=== PATIENT | male | born 1945 | race Caucasian/White ===

== ENCOUNTER → 2016-11-21 | Outpatient (CLI) | payer MEDICARE, OTHER ==
--- NOTE | 2016-11-22 08:35 | XR ---
Left foot HISTORY: Left foot pain 3 views of the left foot No comparisons There is a plantar spur. Enthesophyte present at the insertion of the Achilles tendon. Degenerative c hanges present at the intertarsal joints, there is marginal spurring. Soft tissue swelling is suspect ed. Degenerative change with mild hallux valgus deformity first metatarsophalangeal joint. Bone naturalization examiner alization is maintained. IMPRESSION: Osteoarthritis. No acute fracture or dislocation is evident. Consider MRI for increased s ensitivity. Soft tissue swelling.
== END | disposition home or self-care (01) ==
LOC: RADXRYALE 13:22
PROVIDERS: ATTEND Internal Medicine
DX: M19.072 Primary osteoarthritis, left ankle and foot (principal)

== ENCOUNTER 2017-02-08 02:48 | Inpatient (IN) | payer MEDICARE, OTHER ==
[2017-02-08] MEDS ORDERED: PIPERACILLIN-TAZOBACTAM 3.375 GM in DEXTROSE/WATER 1 50ML.BAG IVPB STA (03:23)
[2017-02-08] MEDS ORDERED: SODIUM CHLORIDE 0.9% 1,000 ML IV STA ×2 (03:23)
[2017-02-08] MEDS ORDERED: IBUPROFEN 600 MG TAB PO STA (03:23)
--- NOTE | 2017-02-08 03:41 | ED ---
Fever HPI - General Chief Complaint: Fever Stated Complaint: wound,fever Time Seen by Provider: 02/08/17 02:54 Source: patient Mode of arrival: ambulatory Limitations: no limitations - History of Present Illness Initial Comments: 71 years old male presents with a fever of 101.73 has left leg is quite warm and tender and red. He also noticed some mild fever or chills shakes] today that made him come to the ER. He denies any headaches no neck stiffness no chest pain no shortness of breath he is not coughing or bringing up any phlegm denies any abdominal pain no frequency urgency dysuria. Denies any sinus symptoms of TIA or CVA - Related Data Home Medications Medication Instructions Recorded Confirmed Acetaminophen Tab [Tylenol Tab] 500 mg PO Q12HR 12/05/16 01/30/17 Atenolol [Tenormin] 25 mg PO DAILY 12/05/16 01/30/17 Atorvastatin [Lipitor] 10 mg PO HS 12/05/16 01/30/17 Liraglutide [Victoza 2-Kwabena] 0.6 mg SQ DAILY 12/05/16 01/30/17 Valsartan [Diovan] 80 mg PO DAILY 12/05/16 01/30/17 metFORMIN HCL [Glucophage] 500 mg PO BID 12/05/16 01/30/17 Allergies Allergy/AdvReac Type Severity Reaction Status Date / Time No Known Allergies Allergy Verified 02/08/17 03:21 Review of Systems ROS Statement: Those systems with pertinent positive or pertinent negative responses have been documented in the HPI. ROS Other: All systems not noted in ROS Statement are negative. Past Medical History Past Medical History: Coronary Artery Disease (CAD), Diabetes Mellitus, Hypertension Additional Past Medical History / Comment(s): left leg wound History of Any Multi-Drug Resistant Organisms: None Reported Past Surgical History: Appendectomy, Coronary Bypass/CABG, Joint Replacement, Tonsillectomy Additional Past Surgical History / Comment(s): aneurysm repair left leg Past Anesthesia/Blood Transfusion Reactions: No Reported Reaction Past Psychological History: No Psychological Hx Reported Smoking Status: Former smoker Past Alcohol Use History: None Reported - Past Family History Mother Family Medical History: Coronary Artery Disease (CAD) Additional Family Medical History / Comment(s): age 82 CAD Father Family Medical History: Cancer Additional Family Medical History / Comment(s): age 64 lung ca (asbestos) General Exam - General Exam Comments Initial Comments: General: The patient is awake and alert, in no distress, and does not appear acutely ill. Skin: Skin is warm and dry and no rashes or lesions are noted. Eye: Pupils are equal, round and reactive to light, extra-ocular movements are intact; there is normal conjunctiva bilaterally. Ears, nose, mouth and throat: There are moist mucous membranes and no oral lesions. Neck: The neck is supple, there is no tenderness or JVD. Cardiovascular: There is a regular rate and rhythm. No murmur, rub or gallop is appreciated. Respiratory: To auscultation bilateral, no wheezing no rhonchi no distress respiratory joseph noticed Gastrointestinal: Soft, non-distended, non-tender abdomen without masses or organomegaly noted. There is no rebound or guarding present. Bowel sounds are unremarkable. Back: There is no tenderness to palpation in the midline. There is no obvious deformity. Musculoskeletal: Normal ROm, minimal left lower extremity exam is consistent with a cellulitis, there is no focal tenderness or increase of the circumference of the left lower extremity, index of suspicion for DVT is negative at this point Neurological: CN II-XII intact, Cranial nerves III through XII are intact. There are no obvious motor or sensory deficits. Coordination appears grossly intact. Speech is normal. Psychiatric: Cooperative, appropriate mood & affect, normal judgment. Limitations: no limitations Course Vital Signs 02/08/17 02/08/17 03:04 04:11 Temperature 101.7 F H 101 F H Pulse Rate 91 84 Respiratory 20 18 Rate Blood Pressure 134/69 125/59 O2 Sat by Pulse 95 96 Oximetry Medical Decision Making - Lab Data Result diagrams: 02/08/17 03:26 02/08/17 03:26 Lab Results 02/08/17 02/08/17 02/08/17 Range/Units 03:26 03:26 03:26 WBC 6.6 (3.8-10.6) k/uL RBC 2.89 L (4.30-5.90) m/uL Hgb 9.7 L (13.0-17.5) gm/dL Hct 28.8 L (39.0-53.0) % MCV 99.5 (80.0-100.0) fL MCH 33.6 (25.0-35.0) pg MCHC 33.7 (31.0-37.0) g/dL RDW 20.8 H (11.5-15.5) % Plt Count 51 L (150-450) k/uL Neutrophils % 85 % Lymphocytes % 6 % Monocytes % 5 % Eosinophils % 3 % Basophils % 0 % Neutrophils # 5.6 (1.3-7.7) k/uL Lymphocytes # 0.4 L (1.0-4.8) k/uL Monocytes # 0.3 (0-1.0) k/uL Eosinophils # 0.2 (0-0.7) k/uL Basophils # 0.0 (0-0.2) k/uL Manual Slide Review Performed Hypochromasia Slight Poikilocytosis Moderate Anisocytosis Moderate Macrocytosis Moderate Tear Drop Cells Present Ovalocytes Present Sodium 139 (137-145) mmol/L Potassium 4.7 (3.5-5.1) mmol/L Chloride 108 H (98-107) mmol/L Carbon Dioxide 19 L (22-30) mmol/L Anion Gap 12 mmol/L BUN 20 (9-20) mg/dL Creatinine 1.00 (0.66-1.25) mg/dL Est GFR (MDRD) Af Amer >60 (>60 ml/min/1.73 sqM) Est GFR (MDRD) Non-Af >60 (>60 ml/min/1.73 sqM) Glucose 189 H (74-99) mg/dL Plasma Lactic Acid Hemant 2.4 H* (0.7-2.0) mmol/L Calcium 8.9 (8.4-10.2) mg/dL Total Bilirubin 1.5 H (0.2-1.3) mg/dL AST 46 (17-59) U/L ALT 41 (21-72) U/L Alkaline Phosphatase 133 H (38-126) U/L Total Protein 6.9 (6.3-8.2) g/dL Albumin 3.8 (3.5-5.0) g/dL Urine Color Urine Appearance (Clear) Urine pH (5.0-8.0) Ur Specific [place] (1.001-1.035) Urine Protein (Negative) Urine Glucose (UA) (Negative) Urine Ketones (Negative) Urine Blood (Negative) Urine Nitrite (Negative) Urine Bilirubin (Negative) Urine Urobilinogen (<2.0) mg/dL Ur Leukocyte Esterase (Negative) 02/08/17 Range/Units 03:26 WBC (3.8-10.6) k/uL RBC (4.30-5.90) m/uL Hgb (13.0-17.5) gm/dL Hct (39.0-53.0) % MCV (80.0-100.0) fL MCH (25.0-35.0) pg MCHC (31.0-37.0) g/dL RDW (11.5-15.5) % Plt Count (150-450) k/uL Neutrophils % % Lymphocytes % % Monocytes % % Eosinophils % % Basophils % % Neutrophils # (1.3-7.7) k/uL Lymphocytes # (1.0-4.8) k/uL Monocytes # (0-1.0) k/uL Eosinophils # (0-0.7) k/uL Basophils # (0-0.2) k/uL Manual Slide Review Hypochromasia Poikilocytosis Anisocytosis Macrocytosis Tear Drop Cells Ovalocytes Sodium (137-145) mmol/L Potassium (3.5-5.1) mmol/L Chloride (98-107) mmol/L Carbon Dioxide (22-30) mmol/L Anion Gap mmol/L BUN (9-20) mg/dL Creatinine (0.66-1.25) mg/dL Est GFR (MDRD) Af Amer (>60 ml/min/1.73 sqM) Est GFR (MDRD) Non-Af (>60 ml/min/1.73 sqM) Glucose (74-99) mg/dL Plasma Lactic Acid Hemant (0.7-2.0) mmol/L Calcium (8.4-10.2) mg/dL Total Bilirubin (0.2-1.3) mg/dL AST (17-59) U/L ALT (21-72) U/L Alkaline Phosphatase (38-126) U/L Total Protein (6.3-8.2) g/dL Albumin (3.5-5.0) g/dL Urine Color Yellow Urine Appearance Clear (Clear) Urine pH 5.0 (5.0-8.0) Ur Specific [place] 1.017 (1.001-1.035) Urine Protein Negative (Negative) Urine Glucose (UA) Negative (Negative) Urine Ketones Negative (Negative) Urine Blood Negative (Negative) Urine Nitrite Negative (Negative) Urine Bilirubin Negative (Negative) Urine Urobilinogen <2.0 (<2.0) mg/dL Ur Leukocyte Esterase Negative (Negative) Disposition Clinical Impression: Fever, Cellulitis, leg, Sepsis, Thrombocytopenia Disposition: ADMITTED IP TO THIS HOSP Condition: Fair Referrals: Theodora Marino MD [Primary Care Provider] - 1-2 days
[2017-02-08 03:45] LABS: ALT 41 U/L (21-72); AST 46 U/L (17-59); Alkaline Phosphatase 133 U/L (38-126); Anion Gap 12 mmol/L; Blood Urea Nitrogen 20 mg/dL (9-20); Calcium 8.9 mg/dL (8.4-10.2); Carbon Dioxide 19 mmol/L (22-30); Chloride 108 mmol/L (98-107); Glucose 189 mg/dL (74-99); Non-African American GFR(MDRD) >60 (>60 ml/min/1.73 sqM); Potassium 4.7 mmol/L (3.5-5.1); Sodium 139 mmol/L (137-145); Total Bilirubin 1.5 mg/dL (0.2-1.3); Total Protein 6.9 g/dL (6.3-8.2)
[2017-02-08 03:58] LABS: Appearance,Urine Clear (Clear); Bilirubin,Urine Negative (Negative); Glucose,Urine (UA) Negative (Negative); Ketones,Urine Negative (Negative); Leukocyte Esterase,Urine Negative (Negative); Nitrite,Urine Negative (Negative); Protein,Urine Negative (Negative); Specific Gravity,Urine 1.017 (1.001-1.035); UA Billing (MACRO vs. MICRO) CHEM; Urobilinogen,Urine <2.0 mg/dL (<2.0)
[2017-02-08 04:00] LABS: Anisocytosis Moderate; Basophils % (A) 0 %; CH 32.8; Eosinophils # (A) 0.2 k/uL (0-0.7); Eosinophils % (A) 3 %; HCT 28.8 % (39.0-53.0); HDW 4.15; HGB 9.7 gm/dL (13.0-17.5); Hypochromasia Slight; Luc # (Auto) 0.07; Luc % (Auto) 1; Lymphocytes # (A) 0.4 k/uL (1.0-4.8); Lymphocytes % (A) 6 %; MCH 33.6 pg (25.0-35.0); MCHC 33.7 g/dL (31.0-37.0); MCV 99.5 fL (80.0-100.0); Macrocytosis Moderate; Mean Platelet Volume 7.2; Monocytes # (A) 0.3 k/uL (0-1.0); Monocytes % (A) 5 %; Neutrophils # (A) 5.6 k/uL (1.3-7.7); Neutrophils % (A) 85 %; Poikilocytosis Moderate; RBC 2.89 m/uL (4.30-5.90); RDW 20.8 % (11.5-15.5); WBC 6.6 k/uL (3.8-10.6); WBC (Perox) 6.85
[2017-02-08 04:16] LABS: Ovalocytes Present
[2017-02-08 04:17] LABS: Tear Drop Cells Present
[2017-02-08 04:18] LABS: Manual Review Performed
[2017-02-08] MEDS ORDERED: ACETAMINOPHEN TAB 325 MG TAB PO PRN (04:31)
[2017-02-08] MEDS ORDERED: ONDANSETRON 4 MG/2 ML VIAL IVP PRN (04:31)
[2017-02-08] MEDS ORDERED: NALOXONE 0.4 MG/ML 1 ML VIAL IV PRN (04:31)
[2017-02-08] MEDS ORDERED: IBUPROFEN 400 MG TAB PO PRN (04:31)
--- NOTE | 2017-02-08 04:43 | XR ---
EXAM: XR Chest, 2 Views CLINICAL HISTORY: Reason: Rule out pneumonia TECHNIQUE: Frontal and lateral views of the chest. COMPARISON: No relevant prior studies available. FINDINGS: Enlarged cardiac silhouette and central vascular congestion. Low lung volumes. No focal consolidative process or pleural effusions. Sternotomy wires and mediastinal clips. IMPRESSION: Enlarged cardiac silhouette with central vascular congestion. No focal consolidative process or pleural effusions.
[2017-02-08 05:57] VITALS: BMI 32.8
[2017-02-08 07:59] LABS: Glucose,Whole Blood 140 mg/dL (75-99)
--- NOTE | 2017-02-08 09:00 | XR ---
EXAMINATION TYPE: XR tibia fibula LT DATE OF EXAM: 02/08/2017 COMPARISON: NONE HISTORY: Pain TECHNIQUE: Two views are submitted. FINDINGS: The osseous structures are intact. The joint spaces are preserved. A vascular calcification noted. Surgical clips overlying the soft tissues adjacent to the knee. Soft tissue calcifications are noted likely vascular. No destructive changes. Soft tissue irregularity along the distal margin of the ante rior soft tissues adjacent to the tibia may relate to cellulitis or possibly wound ulceration. Correl ate clinically. IMPRESSION: 1. No acute osseous abnormality. See above.
[2017-02-08] MEDS: metFORMIN 500 MG TAB PO SCH ×2 (09:46→18:29)
[2017-02-08] MEDS: ATENOLOL 25 MG TAB PO SCH (09:46)
[2017-02-08] MEDS: VALSARTAN 80 MG TAB PO SCH (09:46)
[2017-02-08] MEDS ORDERED: PIPERACILLIN-TAZOBACTAM 3.375 GM in DEXTROSE/WATER 1 50ML.BAG IVPB SCH (10:00)
[2017-02-08 11:15] LABS: Glucose,Whole Blood 231 mg/dL (75-99)
--- NOTE | 2017-02-08 13:02 | US ---
EXAMINATION TYPE: US venous doppler duplex LE LT DATE OF EXAM: 02/08/2017 12:39 PM COMPARISON: NONE CLINICAL HISTORY: r o DVT. History of DVT in left leg 2005 per patient. swelling SIDE PERFORMED: Left TECHNIQUE: The lower extremity deep venous system is examined utilizing real time linear array sonog gorge with graded compression, doppler sonography and color-flow sonography. VESSELS IMAGED: External Iliac Vein (EIV) Common Femoral Vein Deep Femoral Vein Greater Saphenous Vein * Femoral Vein Popliteal Vein Small Saphenous Vein * Proximal Calf Veins (* superficial vessels) Left Leg: Non-occluding thrombus visualized in the left mid/distal popliteal vein. IMPRESSION: 1. Positive exam for Nonoccluding DVT left mid and distal popliteal vein.
[2017-02-08] MEDS: INSULIN LISPRO (humaLOG) 300 UNIT/3 ML VIAL SQ SCH ×3 (13:10→20:53)
[2017-02-08] MEDS ORDERED: IV VANCOMYCIN PER PHARMACY 1 EACH MISC MISCELLANE PRN (13:57)
[2017-02-08 14:15] LABS: Hemoglobin A1C 6.1 % (4.2-6.1)
--- NOTE | 2017-02-08 14:16 | P.HPIM ---
History of Present Illness H&P Date: 02/08/17 Chief Complaint: fever 71 yr old with history of CAD, DM2, peripheral neuropathy comes into the hospital with complaints of acute fever with a peak temp of 101.3. Pt has been suffering with a left lower ext. wound for the last few weeks after sustaining an injury. pt was seen by Dr ford, and was started on a woundvac. Appears to have bleeding on the last eval, he was told he was doing well Pt was also noted to have bicytopenia. Today pt denies having fevers, chills, cp, paul, n/v, abdominal pain, diarrhea, urinary urgency or frequency. Review of Systems All systems: negative (noted in hpi) Past Medical History Past Medical History: Coronary Artery Disease (CAD), Diabetes Mellitus, Hypertension Additional Past Medical History / Comment(s): left leg wound History of Any Multi-Drug Resistant Organisms: None Reported Past Surgical History: Appendectomy, Coronary Bypass/CABG, Joint Replacement, Tonsillectomy Additional Past Surgical History / Comment(s): aneurysm repair left leg Past Anesthesia/Blood Transfusion Reactions: No Reported Reaction Past Psychological History: No Psychological Hx Reported Smoking Status: Former smoker Past Alcohol Use History: None Reported - Past Family History Mother Family Medical History: Coronary Artery Disease (CAD) Additional Family Medical History / Comment(s): age 82 CAD Father Family Medical History: Cancer Additional Family Medical History / Comment(s): age 64 lung ca (asbestos) Medications and Allergies Home Medications Medication Instructions Recorded Confirmed Type Acetaminophen Tab [Tylenol Tab] 500 mg PO Q12HR 12/05/16 02/08/17 History Atenolol [Tenormin] 25 mg PO DAILY 12/05/16 02/08/17 History Atorvastatin [Lipitor] 10 mg PO HS 12/05/16 02/08/17 History Liraglutide [Victoza 2-Kwabena] 0.6 mg SQ DAILY 12/05/16 02/08/17 History Valsartan [Diovan] 80 mg PO DAILY 12/05/16 02/08/17 History Docusate [Colace] 100 mg PO BID 02/08/17 02/08/17 History metFORMIN HCL 1,000 mg PO BID 02/08/17 02/08/17 History Allergies Allergy/AdvReac Type Severity Reaction Status Date / Time No Known Allergies Allergy Verified 02/08/17 08:21 Physical Exam Vitals: Vital Signs Temp Pulse Pulse Resp BP BP Pulse Ox 02/08/17 07:00 98.1 F 95 18 107/55 96 02/08/17 05:56 97.8 F 94 16 112/65 96 02/08/17 04:11 101 F H 84 18 125/59 96 02/08/17 03:04 101.7 F H 91 20 134/69 95 Intake and Output 02/07/17 02/08/17 02/08/17 22:59 06:59 14:59 Other: Voiding Method Toilet # Voids 1 Weight 95.254 kg - Constitutional General appearance: no acute distress - EENT Eyes: EOMI, PERRLA - Respiratory Respiratory: bilateral: CTA, negative: diminished, dullness, rales - Cardiovascular Rhythm: regular Heart sounds: normal: S1, S2 Abnormal Heart Sounds: no systolic murmur - Gastrointestinal General gastrointestinal: normal bowel sounds, no organomegaly, soft - Integumentary Integumentary: ulcer (left lower ext. wounds vac was removed, 5 times 7 cms.) - Neurologic Neurologic: CNII-XII intact Results CBC & Chem 7: 02/08/17 03:26 02/08/17 03:26 Labs: Abnormal Lab Results - Last 24 Hours (Table) 02/08/17 02/08/17 02/08/17 Range/Units 03:26 03:26 03:26 RBC 2.89 L (4.30-5.90) m/uL Hgb 9.7 L (13.0-17.5) gm/dL Hct 28.8 L (39.0-53.0) % RDW 20.8 H (11.5-15.5) % Plt Count 51 L (150-450) k/uL Lymphocytes # 0.4 L (1.0-4.8) k/uL Chloride 108 H (98-107) mmol/L Carbon Dioxide 19 L (22-30) mmol/L Glucose 189 H (74-99) mg/dL POC Glucose (mg/dL) (75-99) mg/dL Plasma Lactic Acid Hemant 2.4 H* (0.7-2.0) mmol/L Total Bilirubin 1.5 H (0.2-1.3) mg/dL Alkaline Phosphatase 133 H (38-126) U/L 02/08/17 02/08/17 Range/Units 07:57 11:14 RBC (4.30-5.90) m/uL Hgb (13.0-17.5) gm/dL Hct (39.0-53.0) % RDW (11.5-15.5) % Plt Count (150-450) k/uL Lymphocytes # (1.0-4.8) k/uL Chloride (98-107) mmol/L Carbon Dioxide (22-30) mmol/L Glucose (74-99) mg/dL POC Glucose (mg/dL) 140 H 231 H (75-99) mg/dL Plasma Lactic Acid Hemant (0.7-2.0) mmol/L Total Bilirubin (0.2-1.3) mg/dL Alkaline Phosphatase (38-126) U/L Thrombosis Risk Factor Assmnt - Choose All That Apply Any of the Below Risk Factors Present?: Yes Each Factor Represents 1 point: Obesity (BMI >25), Sepsis (< 1month) Each Risk Factor Represents 2 Points: Age 61-74 years Thrombosis Risk Factor Assessment Total Risk Factor Score: 4 Thrombosis Risk Factor Assessment Level: Moderate Risk Assessment and Plan Plan: 1. FUO suspected sepsis from a wound infection 2. Acute non occlusive DVT 3. CAD 4. Bicytopenia 5. HTN 6. DM2 7. Diabetic neuropathy. Plan will start on xarelto hepatitis panel ovalocytes noted b12 and iron profile to be done will need audit screening for alcohol use change zosyn to cefepime wound cultures sent by me ANDREW cheng
[2017-02-08 14:38] VITALS: RESP 16
[2017-02-08] MEDS ORDERED: VANCOMYCIN 1,500 MG in SODIUM CHLORIDE 0.9% 250 ML IVPB ONE (15:00)
--- NOTE | 2017-02-08 16:01 | P.GSCN ---
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 done by me in the past Patient history of coronary artery disease diabetes mellitus controlled with medication On examination neck is supple no bruit appreciated Chest clear first and second sound normal Abdomen soft nontender Patient has a wound left lower extremity no discharge or redness noted we've been treating with local wound care which will be continued Recently had a venous ultrasound sound which showed popliteal vein DVT nonocclusive this patient had a DVT in the past he could be a chronic Plan is continue with local wound care, patient is on [place] we will continue that and patient will be seen in the wound clinic on Monday Past Medical History Past Medical History: Coronary Artery Disease (CAD), Diabetes Mellitus, Hypertension Additional Past Medical History / Comment(s): left leg wound History of Any Multi-Drug Resistant Organisms: None Reported Past Surgical History: Appendectomy, Coronary Bypass/CABG, Joint Replacement, Tonsillectomy Additional Past Surgical History / Comment(s): aneurysm repair left leg Past Anesthesia/Blood Transfusion Reactions: No Reported Reaction Past Psychological History: No Psychological Hx Reported Smoking Status: Former smoker Past Alcohol Use History: None Reported - Past Family History Mother Family Medical History: Coronary Artery Disease (CAD) Additional Family Medical History / Comment(s): age 82 CAD Father Family Medical History: Cancer Additional Family Medical History / Comment(s): age 64 lung ca (asbestos) Medications and Allergies Home Medications Medication Instructions Recorded Confirmed Type Acetaminophen Tab [Tylenol Tab] 500 mg PO Q12HR 12/05/16 02/08/17 History Atenolol [Tenormin] 25 mg PO DAILY 12/05/16 02/08/17 History Atorvastatin [Lipitor] 10 mg PO HS 12/05/16 02/08/17 History Liraglutide [Victoza 2-Kwabena] 0.6 mg SQ DAILY 12/05/16 02/08/17 History Valsartan [Diovan] 80 mg PO DAILY 12/05/16 02/08/17 History Docusate [Colace] 100 mg PO BID 02/08/17 02/08/17 History metFORMIN HCL 1,000 mg PO BID 02/08/17 02/08/17 History Allergies Allergy/AdvReac Type Severity Reaction Status Date / Time No Known Allergies Allergy Verified 02/08/17 08:21 Surgical - Exam Vital Signs Temp Pulse Resp BP Pulse Ox 101.7 F H 91 20 134/69 95 02/08/17 03:04 02/08/17 03:04 02/08/17 03:04 02/08/17 03:04 02/08/17 03:04 Results - Labs 02/08/17 03:26 02/08/17 03:26 Abnormal Lab Results - Last 24 Hours (Table) 02/08/17 02/08/17 02/08/17 Range/Units 03:26 03:26 03:26 RBC 2.89 L (4.30-5.90) m/uL Hgb 9.7 L (13.0-17.5) gm/dL Hct 28.8 L (39.0-53.0) % RDW 20.8 H (11.5-15.5) % Plt Count 51 L (150-450) k/uL Lymphocytes # 0.4 L (1.0-4.8) k/uL Chloride 108 H (98-107) mmol/L Carbon Dioxide 19 L (22-30) mmol/L Glucose 189 H (74-99) mg/dL POC Glucose (mg/dL) (75-99) mg/dL Plasma Lactic Acid Hemant 2.4 H* (0.7-2.0) mmol/L Total Bilirubin 1.5 H (0.2-1.3) mg/dL Alkaline Phosphatase 133 H (38-126) U/L 02/08/17 02/08/17 Range/Units 07:57 11:14 RBC (4.30-5.90) m/uL Hgb (13.0-17.5) gm/dL Hct (39.0-53.0) % RDW (11.5-15.5) % Plt Count (150-450) k/uL Lymphocytes # (1.0-4.8) k/uL Chloride (98-107) mmol/L Carbon Dioxide (22-30) mmol/L Glucose (74-99) mg/dL POC Glucose (mg/dL) 140 H 231 H (75-99) mg/dL Plasma Lactic Acid Hemant (0.7-2.0) mmol/L Total Bilirubin (0.2-1.3) mg/dL Alkaline Phosphatase (38-126) U/L Diabetes panel 02/08/17 02/08/17 Range/Units 03:26 03:26 Sodium 139 (137-145) mmol/L Potassium 4.7 (3.5-5.1) mmol/L Chloride 108 H (98-107) mmol/L Carbon Dioxide 19 L (22-30) mmol/L BUN 20 (9-20) mg/dL Creatinine 1.00 (0.66-1.25) mg/dL Glucose 189 H (74-99) mg/dL Hemoglobin A1c 6.1 (4.2-6.1) % Calcium 8.9 (8.4-10.2) mg/dL AST 46 (17-59) U/L ALT 41 (21-72) U/L Alkaline Phosphatase 133 H (38-126) U/L Total Protein 6.9 (6.3-8.2) g/dL Albumin 3.8 (3.5-5.0) g/dL Calcium panel 02/08/17 Range/Units 03:26 Calcium 8.9 (8.4-10.2) mg/dL Albumin 3.8 (3.5-5.0) g/dL Pituitary panel 02/08/17 Range/Units 03:26 Sodium 139 (137-145) mmol/L Potassium 4.7 (3.5-5.1) mmol/L Chloride 108 H (98-107) mmol/L Carbon Dioxide 19 L (22-30) mmol/L BUN 20 (9-20) mg/dL Creatinine 1.00 (0.66-1.25) mg/dL Glucose 189 H (74-99) mg/dL Calcium 8.9 (8.4-10.2) mg/dL Adrenal panel 02/08/17 Range/Units 03:26 Sodium 139 (137-145) mmol/L Potassium 4.7 (3.5-5.1) mmol/L Chloride 108 H (98-107) mmol/L Carbon Dioxide 19 L (22-30) mmol/L BUN 20 (9-20) mg/dL Creatinine 1.00 (0.66-1.25) mg/dL Glucose 189 H (74-99) mg/dL Calcium 8.9 (8.4-10.2) mg/dL Total Bilirubin 1.5 H (0.2-1.3) mg/dL AST 46 (17-59) U/L ALT 41 (21-72) U/L Alkaline Phosphatase 133 H (38-126) U/L Total Protein 6.9 (6.3-8.2) g/dL Albumin 3.8 (3.5-5.0) g/dL
[2017-02-08 17:04] LABS: Glucose,Whole Blood 130 mg/dL (75-99)
[2017-02-08] MEDS: RIVAROXABAN 15 MG TAB PO SCH (17:39)
[2017-02-08 19:57] LABS: Glucose,Whole Blood 124 mg/dL (75-99)
[2017-02-08] MEDS: CEFEPIME 2 GM in SODIUM CHLORIDE 0.9% 50 ML IVPB SCH (20:54)
[2017-02-08] MEDS: ATORVASTATIN 10 MG TAB PO SCH (20:55)
[2017-02-08] MEDS ORDERED: MELATONIN 1 MG TAB PO PRN (22:57)
[2017-02-09] MEDS: VANCOMYCIN 1,500 MG in SODIUM CHLORIDE 0.9% 250 ML IVPB SCH ×2 (00:08→17:28)
[2017-02-09 07:35] LABS: Glucose,Whole Blood 127 mg/dL (75-99)
[2017-02-09] MEDS: INSULIN LISPRO (humaLOG) 300 UNIT/3 ML VIAL SQ SCH ×4 (08:05→21:14)
[2017-02-09] MEDS: VALSARTAN 80 MG TAB PO SCH (08:06)
[2017-02-09] MEDS: ATENOLOL 25 MG TAB PO SCH (08:06)
[2017-02-09] MEDS: RIVAROXABAN 15 MG TAB PO SCH ×2 (08:07→17:33)
[2017-02-09] MEDS: metFORMIN 500 MG TAB PO SCH ×2 (08:07→18:01)
[2017-02-09] MEDS: CEFEPIME 2 GM in SODIUM CHLORIDE 0.9% 50 ML IVPB SCH ×2 (08:08→21:14)
[2017-02-09 08:19] LABS: ALT 45 U/L (21-72); AST 48 U/L (17-59); Alkaline Phosphatase 95 U/L (38-126); Anion Gap 8 mmol/L; Blood Urea Nitrogen 20 mg/dL (9-20); Calcium 8.3 mg/dL (8.4-10.2); Carbon Dioxide 20 mmol/L (22-30); Chloride 110 mmol/L (98-107); Cholesterol 100 mg/dL (<200); Glucose 112 mg/dL (74-99); HDL Cholesterol 30 mg/dL (40-60); Magnesium 1.4 mg/dL (1.6-2.3); Non-African American GFR(MDRD) >60 (>60 ml/min/1.73 sqM); Potassium 4.5 mmol/L (3.5-5.1); Sodium 138 mmol/L (137-145); Total Bilirubin 1.9 mg/dL (0.2-1.3); Total Protein 6.4 g/dL (6.3-8.2)
[2017-02-09 08:31] LABS: Anisocytosis Moderate; Basophils % (A) 0 %; CH 33.4; CHCM 31.8; Eosinophils # (A) 0.2 k/uL (0-0.7); Eosinophils % (A) 5 %; HCT 30.2 % (39.0-53.0); HGB 9.3 gm/dL (13.0-17.5); Hypochromasia Moderate; Luc % (Auto) 2; Lymphocytes # (A) 0.6 k/uL (1.0-4.8); Lymphocytes % (A) 14 %; MCH 32.3 pg (25.0-35.0); MCHC 30.8 g/dL (31.0-37.0); Macrocytosis Marked; Mean Platelet Volume 7.8; Monocytes # (A) 0.3 k/uL (0-1.0); Monocytes % (A) 7 %; Neutrophils # (A) 3.1 k/uL (1.3-7.7); Neutrophils % (A) 71 %; Poikilocytosis Slight; RBC 2.87 m/uL (4.30-5.90); RDW 21.3 % (11.5-15.5); WBC 4.4 k/uL (3.8-10.6); WBC (Perox) 4.47
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
[2017-02-09 10:31] LABS: Tear Drop Cells Present
[2017-02-09 12:09] LABS: Glucose,Whole Blood 208 mg/dL (75-99)
[2017-02-09 12:16] LABS: Iron 50 ug/dL (49-181)
[2017-02-09 12:28] LABS: % Iron Saturation 19.2 % (20-50); Total Iron Binding Capacity 261 ug/dL (261-462)
[2017-02-09 13:11] LABS: Vitamin B12 526 pg/mL
[2017-02-09 14:03] LABS: Hepatitis B Surface Ag Index 0.07
[2017-02-09 14:08] LABS: Hepatitis B Core IgM Index 0.02
--- NOTE | 2017-02-09 14:10 | P.DS ---
Providers Date of admission: 02/08/17 04:32 Attending physician: Rosas Rodriguez Consults: 02/08/17 04:31 Consult Physician Stat Consulting Provider: Randy Arita Consult Reason/Comments: Chronic left leg wound Do you want consulting provider notified?: Yes Consult Physician Stat Consulting Provider: Wanda Fonseca Consult Reason/Comments: sepsis, left leg infection Do you want consulting provider notified?: Yes Primary care physician: Theodora Marino [facility] Course: 71 yr old with history of CAD, DM2, peripheral neuropathy comes into the hospital with complaints of acute fever with a peak temp of 101.3. Pt has been suffering with a left lower ext. wound for the last few weeks after sustaining an injury. pt was seen by Dr arita, and was started on a woundvac. Appears to have bleeding on the last eval, he was told he was doing well Pt was also noted to have bicytopenia. Today pt denies having fevers, chills, cp, paul, n/v, abdominal pain, diarrhea, urinary urgency or frequency. 02/09/17 doing well - Constitutional General appearance: no acute distress - EENT Eyes: EOMI, PERRLA - Respiratory Respiratory: bilateral: CTA, negative: diminished, dullness, rales - Cardiovascular Rhythm: regular Heart sounds: normal: S1, S2 Abnormal Heart Sounds: no systolic murmur - Gastrointestinal General gastrointestinal: normal bowel sounds, no organomegaly, soft - Integumentary Integumentary: ulcer (left lower ext. wounds vac was removed, 5 times 7 cms.) - Neurologic Neurologic: CNII-XII intact Assessment and Plan Plan: 1. FUO, this is likely due to a DVT, no sepsis. 2. Acute non occlusive DVT, provoked 3. CAD 4. Bicytopenia, pt apparently had been monitered by Dr Brito, underwent a bone marrow biopsy 5. HTN 6. DM2 7. Diabetic neuropathy. Plan xarelto outpt follow up [facility] Dr Arita Patient Condition at Discharge: Fair Plan - Discharge Summary New Discharge Prescriptions: New metFORMIN HCL [Glucophage] 500 mg PO AC-BID tab Rivaroxaban [Xarelto] 15 mg PO BID-W/MEALS tab Continue Liraglutide [Victoza 2-Kwabena] 0.6 mg SQ DAILY Valsartan [Diovan] 80 mg PO DAILY Atorvastatin [Lipitor] 10 mg PO HS Atenolol [Tenormin] 25 mg PO DAILY Acetaminophen Tab [Tylenol] 500 mg PO Q12HR metFORMIN HCL 1,000 mg PO BID Docusate [Colace] 100 mg PO BID Discharge Medication List Acetaminophen Tab [Tylenol] 500 mg PO Q12HR 12/05/16 [History] Atenolol [Tenormin] 25 mg PO DAILY 12/05/16 [History] Atorvastatin [Lipitor] 10 mg PO HS 12/05/16 [History] Liraglutide [Victoza 2-Kwabena] 0.6 mg SQ DAILY 12/05/16 [History] Valsartan [Diovan] 80 mg PO DAILY 12/05/16 [History] Docusate [Colace] 100 mg PO BID 02/08/17 [History] metFORMIN HCL 1,000 mg PO BID 02/08/17 [History] Rivaroxaban [Xarelto] 15 mg PO BID-W/MEALS tab 02/09/17 [Rx] metFORMIN HCL [Glucophage] 500 mg PO AC-BID tab 02/09/17 [Rx] Follow up Appointment(s)/Referral(s): [facility], [NON-STAFF] - 1 Week Theodora Marino MD [Primary Care Provider] - 1-2 days Randy Arita MD [STAFF PHYSICIAN] - 1 Week (see on Monday at the Wound Center) Patient Instructions/Handouts: Rivaroxaban (By mouth), Cellulitis (DC), Fever in Adults (GEN), Sepsis (GEN), Thrombocytopenia (DC) Discharge Disposition: HOME WITH HOME HEALTH SERVICES
[2017-02-09 14:20] LABS: Hepatitis C Virus IgG Ab Negative (Negative); Hepatitis C Virus IgG Index 0.11
[2017-02-09 17:11] LABS: Glucose,Whole Blood 164 mg/dL (75-99)
[2017-02-09 20:59] LABS: Glucose,Whole Blood 160 mg/dL (75-99)
[2017-02-09] MEDS: ATORVASTATIN 10 MG TAB PO SCH (21:14)
[2017-02-09 22:51] VITALS: TEMP 98.3
--- NOTE | 2017-02-10 07:10 | PN ---
DATE OF SERVICE: 02/09/2017 Reason for consultation is left leg wound infection with cellulitis. INTERVAL HISTORY: The patient is afebrile. He is breathing comfortably. Today, denies significant chest pain, shortness of breath or cough. No abdominal pain or any worsening pain on the left leg area. On examination, blood pressure is 122/59 with a pulse of 71, temperature 98.2. He is 97% on room air. General description is a middle age male up in the chair in no distress. RESPIRATORY SYSTEM: Unlabored breathing. Clear to auscultation anteriorly. HEART: S1 and S2, regular rate and rhythm. ABDOMEN: Soft, no tenderness. Left leg swelling and redness has improved. LABS: White count of 4.4. Wound cultures currently showing a gram negative bacilli, ID sensitivity pending ( ) group B strep. DIAGNOSTIC IMPRESSION AND PLAN: Patient admitted to the hospital with sepsis source is left leg wound infection with secondary cellulitis. Overall improvement on cefepime and vancomycin. Wound culture with gram negative and the group B strep, currently responding to cefepime. Cefepime will be continued and vancomycin will be discontinued. As gram positive, will recommend holding the discharge until his cultures are finalized. LENORED
[2017-02-10 07:28] VITALS: BP 131/70
[2017-02-10 07:52] LABS: Glucose,Whole Blood 146 mg/dL (75-99)
[2017-02-10] MEDS: INSULIN LISPRO (humaLOG) 300 UNIT/3 ML VIAL SQ SCH ×2 (08:12→13:29)
[2017-02-10] MEDS: VALSARTAN 80 MG TAB PO SCH (08:13)
[2017-02-10] MEDS: metFORMIN 500 MG TAB PO SCH (08:13)
[2017-02-10] MEDS: ATENOLOL 25 MG TAB PO SCH (08:13)
[2017-02-10] MEDS: RIVAROXABAN 15 MG TAB PO SCH (08:13)
[2017-02-10] MEDS: CEFEPIME 2 GM in SODIUM CHLORIDE 0.9% 50 ML IVPB SCH (08:17)
[2017-02-10 08:41] VITALS: PULSE 86
[2017-02-10 12:12] LABS: Glucose,Whole Blood 201 mg/dL (75-99)
--- NOTE | 2017-02-11 08:43 | PN ---
DATE OF SERVICE: 02/10/17 REASON FOR FOLLOW UP: Left leg wound infection and cellulitis. INTERVAL HISTORY: The patient is afebrile. He is breathing comfortably. Denies significant chest pain, shortness of breath, cough. No abdominal pain. No diarrhea. No pain in the left leg area. On examination, blood pressure 131/70 with a pulse of 86. Temperature 98.3. He is 97% on room air. General description is an elderly male up in the chair in no distress. Respiratory system unlabored breathing. Clear to auscultation anteriorly. Heart S1, S2 regular rate and rhythm. Abdomen soft. No tenderness. LABS: No new labs have been obtained today. Wound culture finalized with Proteus mirabilis and Streptococcus agalactiae. DIAGNOSTIC IMPRESSION AND PLAN: The patient admitted to the hospital with sepsis. Source is left leg wound infection with secondary cellulitis. Cultures positive for Proteus and streptococcus agalactiae both sensitive to pathogens. Antibiotics in the form of Keflex 500 mg t.i.d. for ten days, script was sent to the pharmacy. Local wound care with Aquacel silver. LENORED
--- NOTE | 2017-02-11 18:05 | P.DS ---
Providers Date of admission: 02/08/17 04:32 Expected date of discharge: 02/10/17 Attending physician: Rosas Adorno Consults: 02/08/17 04:31 Consult Physician Stat Consulting Provider: Randy Arita Consult Reason/Comments: Chronic left leg wound Do you want consulting provider notified?: Yes Consult Physician Stat Consulting Provider: Wanda Fonseca Consult Reason/Comments: sepsis, left leg infection Do you want consulting provider notified?: Yes Primary care physician: Theodora Marino Hospital Course: Final Diagnoses: 1. FUO, this is likely due to a DVT, no sepsis. 2. Acute non occlusive DVT, provoked 3. CAD 4. Bicytopenia, pt apparently had been monitered by Dr Brito, underwent a bone marrow biopsy 5. HTN 6. DM2 7. Diabetic neuropathy. Hospital course:71 yr old with history of CAD, DM2, peripheral neuropathy comes into the hospital with complaints of acute fever with a peak temp of 101.3. Pt has been suffering with a left lower ext. wound for the last few weeks after sustaining an injury. pt was seen by Dr arita, and was started on a woundvac. Appears to have bleeding on the last eval, he was told he was doing well Pt was also noted to have bicytopenia. Today pt denies having fevers, chills, cp, paul, n/v, abdominal pain, diarrhea, urinary urgency or frequency. Cleared by consults for discharge. Patient is being discharged home in a stable condition with guarded prognosis. The impression and plan of care has been dictated as directed as a scribe. : I performed a H&P examination of this patient and discussed the same with the dictator. I agree with the dictator's note. Any additional findings/opinions/ etc. will be noted. Patient Condition at Discharge: Stable Plan - Discharge Summary New Discharge Prescriptions: New metFORMIN HCL [Glucophage] 500 mg PO AC-BID tab Rivaroxaban [Xarelto] 15 mg PO BID-W/MEALS tab Cephalexin [Keflex] 500 mg PO Q8HR #42 cap Continue Liraglutide [Victoza 2-Kwabena] 0.6 mg SQ DAILY Valsartan [Diovan] 80 mg PO DAILY Atorvastatin [Lipitor] 10 mg PO HS Atenolol [Tenormin] 25 mg PO DAILY Acetaminophen Tab [Tylenol] 500 mg PO Q12HR Docusate [Colace] 100 mg PO BID Discharge Medication List Acetaminophen Tab [Tylenol] 500 mg PO Q12HR 12/05/16 [History] Atenolol [Tenormin] 25 mg PO DAILY 12/05/16 [History] Atorvastatin [Lipitor] 10 mg PO HS 12/05/16 [History] Liraglutide [Victoza 2-Kwabena] 0.6 mg SQ DAILY 12/05/16 [History] Valsartan [Diovan] 80 mg PO DAILY 12/05/16 [History] Docusate [Colace] 100 mg PO BID 02/08/17 [History] Rivaroxaban [Xarelto] 15 mg PO BID-W/MEALS tab 02/09/17 [Rx] metFORMIN HCL [Glucophage] 500 mg PO AC-BID tab 02/09/17 [Rx] Cephalexin [Keflex] 500 mg PO Q8HR #42 cap 02/10/17 [Rx] Follow up Appointment(s)/Referral(s): [facility], [NON-STAFF] - 1 Week Theodora Marino MD [Primary Care Provider] - 3 Days Randy Arita MD [STAFF PHYSICIAN] - 1 Week (see on Monday at the Wound Center) Wanad Fonseca MD [STAFF PHYSICIAN] - 1 Week Ambulatory/Diagnostic Orders: Complete Blood Count w/diff [LAB.AMB] Time Frame: 3 Days, Location: Determined By Patient Patient Instructions/Handouts: Rivaroxaban (By mouth), Cellulitis (DC), Fever in Adults (GEN), Sepsis (GEN), Thrombocytopenia (DC) Discharge Disposition: HOME WITH HOME HEALTH SERVICES
== END 2017-02-10 14:39 | disposition home health service (06) | DRG 300 ==
LOC: EC 02:48 → 5MS5E 04:32
PROVIDERS: ADMIT Hospitalist; ATTEND Hospitalist
DX: I82.432 Acute embolism and thrombosis of left popliteal vein (principal); L97.929 Non-pressure chronic ulcer of unspecified part of left lower leg with unspecified severity; E11.42 Type 2 diabetes mellitus with diabetic polyneuropathy; D69.6 Thrombocytopenia, unspecified; L03.116 Cellulitis of left lower limb; S81.812A Laceration without foreign body, left lower leg, initial encounter; B96.4 Proteus (mirabilis) (morganii) as the cause of diseases classified elsewhere; I10 Essential (primary) hypertension; R50.9 Fever, unspecified; E66.9 Obesity, unspecified; R53.1 Weakness; B95.1 Streptococcus, group B, as the cause of diseases classified elsewhere; I25.10 Atherosclerotic heart disease of native coronary artery without angina pectoris; Z82.49 Family history of ischemic heart disease and other diseases of the circulatory system; Z80.1 Family history of malignant neoplasm of trachea, bronchus and lung; Z79.899 Other long term (current) drug therapy; Z95.1 Presence of aortocoronary bypass graft; Z87.891 Personal history of nicotine dependence; Z79.84 Long term (current) use of oral hypoglycemic drugs; Z86.79 Personal history of other diseases of the circulatory system; Z86.718 Personal history of other venous thrombosis and embolism; Z90.49 Acquired absence of other specified parts of digestive tract; Z96.60 Presence of unspecified orthopedic joint implant; W31.89XA Contact with other specified machinery, initial encounter; Y93.H2 Activity, gardening and landscaping
CPT/HCPCS: 36415; 71020; 80053; 80061; 80074; 81003; 82607; 83036; 83540; 83550; 83605; 83735; 85025; 87040; 87070; 87075; 87077; 87186; 87205; 96365; 96366; 99291

== ENCOUNTER → 2017-03-30 | Outpatient (CLI) | payer MEDICARE, OTHER ==
--- NOTE | 2017-03-30 10:04 | US ---
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 ABnormal labs EXAM MEASUREMENTS: Liver Length: 16.3 cm Gallbladder Wall: 0.2 cm CBD: 0.4 cm Right Kidney: 11.2 x 5.1 x 5.5 cm Pancreas: wnl, tail obscured by bowel gas Liver: Heterogeneous, lobulated contour Gallbladder: Mobile gallstone= 1.9 cm Evidence for sonographic Osullivan's sign: No CBD: wnl Right Kidney: Multiple small cysts, largest lateral= 2.1 x 1.7 x 1.5 cm IMPRESSION: 1. Uncomplicated cholelithiasis. 2. Coarse lobulated hepatic contour and echotexture. 3. Right renal cysts.
== END | disposition home or self-care (01) ==
LOC: RADUSWWP 09:34
PROVIDERS: ATTEND Internal Medicine Gastroenterology
DX: K80.20 Calculus of gallbladder without cholecystitis without obstruction (principal); N28.1 Cyst of kidney, acquired; R93.2 Abnormal findings on diagnostic imaging of liver and biliary tract
CPT/HCPCS: 36415; 76705; 82103; 82728; 83540; 83550; 85025; 86038; 86803; 87340

== ENCOUNTER → 2017-03-30 | Outpatient (CLI) | payer MEDICARE, OTHER ==
[2017-03-30 10:21] LABS: Anisocytosis Moderate; Basophils % (A) 1 %; CH 32.9; CHCM 31.8; Eosinophils # (A) 0.2 k/uL (0-0.7); Eosinophils % (A) 7 %; HCT 31.9 % (39.0-53.0); HDW 3.81; Hypochromasia Moderate; Large Platelets Flag Slight; Luc # (Auto) 0.04; Luc % (Auto) 2; Lymphocytes # (A) 0.5 k/uL (1.0-4.8); Lymphocytes % (A) 18 %; MCH 33.5 pg (25.0-35.0); MCHC 32.3 g/dL (31.0-37.0); MCV 103.8 fL (80.0-100.0); Macrocytosis Marked; Mean Platelet Volume 11.3; Monocytes # (A) 0.2 k/uL (0-1.0); Monocytes % (A) 7 %; Neutrophils # (A) 1.7 k/uL (1.3-7.7); Neutrophils % (A) 66 %; Poikilocytosis Slight; RBC 3.08 m/uL (4.30-5.90); RDW 21.5 % (11.5-15.5); WBC 2.6 k/uL (3.8-10.6); WBC (Perox) 2.81
[2017-03-30 10:36] LABS: HGB 10.3 gm/dL (13.0-17.5)
[2017-03-30 11:38] LABS: Manual Review Performed
[2017-03-30 15:43] LABS: Iron Saturation 20.91 (15.00-50.00); Iron(FE) 69 ug/dL (65-175); Total Iron Binding Capacity 330 ug/dL (228-460)
[2017-03-30 18:04] LABS: ANA w/Reflex to Titer NEGATIVE (NEGATIVE)
== END | disposition home or self-care (01) ==
LOC: LABWHC1 09:53
PROVIDERS: ATTEND Internal Medicine Gastroenterology
DX: K31.89 Other diseases of stomach and duodenum (principal); D64.9 Anemia, unspecified; K76.6 Portal hypertension
CPT/HCPCS: 36415; 82103; 82728; 83540; 83550; 85025; 86038; 86803; 87340

== ENCOUNTER 2019-09-05 21:18 | Emergency (ER) | payer MEDICARE, OTHER ==
[2019-09-05 21:22] VITALS: RESP 18; TEMP 98.3
[2019-09-05] MEDS ORDERED: SODIUM CHLORIDE 0.9% 1,000 ML IV STA (21:46)
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
[2019-09-05 21:58] LABS: Anisocytosis Moderate; Basophils % (A) 1 %; Eosinophils # (A) 0.4 k/uL (0-0.7); Eosinophils % (A) 9 %; Hypochromasia Moderate; Lymphocytes # (A) 1.1 k/uL (1.0-4.8); Lymphocytes % (A) 26 %; MCH 32.8 pg (25.0-35.0); MCHC 32.2 g/dL (31.0-37.0); MCV 101.7 fL (80.0-100.0); Macrocytosis Moderate; Mean Platelet Volume 12.6; Monocytes # (A) 0.3 k/uL (0-1.0); Monocytes % (A) 6 %; Neutrophils # (A) 2.4 k/uL (1.3-7.7); Neutrophils % (A) 55 %; Poikilocytosis Moderate; RBC 3.05 m/uL (4.30-5.90); RDW 21.2 % (11.5-15.5); WBC 4.4 k/uL (3.8-10.6)
[2019-09-05 22:03] LABS: Albumin 3.9 g/dL (3.5-5.0); Calcium 8.9 mg/dL (8.4-10.2); Potassium 4.7 mmol/L (3.5-5.1); Total Bilirubin 1.6 mg/dL (0.2-1.3); Total Protein 7.1 g/dL (6.3-8.2)
[2019-09-05 23:20] VITALS: BP 109/62; PULSE 72
[2019-09-05 23:37] LABS: Polychromasia Present
[2019-09-05 23:38] LABS: Ovalocytes Present
[2019-09-05 23:41] LABS: Large Platelets Present
[2019-09-05 23:42] LABS: Platelet Count 77 k/uL (150-450)
== END 2019-09-05 22:58 | disposition home or self-care (01) ==
LOC: EC 21:18
DX: K64.9 Unspecified hemorrhoids (principal); I25.10 Atherosclerotic heart disease of native coronary artery without angina pectoris; E11.9 Type 2 diabetes mellitus without complications; I10 Essential (primary) hypertension; Z79.899 Other long term (current) drug therapy; Z87.891 Personal history of nicotine dependence; Z86.718 Personal history of other venous thrombosis and embolism; Z95.1 Presence of aortocoronary bypass graft
CPT/HCPCS: 36415; 80053; 85025; 85730; 96360; 99283